=== PATIENT | male | born 1965 | race Hispanic/Latino ===

== ENCOUNTER 2017-05-12 13:27 | Emergency (ER) | payer MEDICAID ==
[2017-05-12 13:31] VITALS: BMI 22.5
[2017-05-12 13:35] VITALS: RESP 18; O2SAT 97
--- NOTE | 2017-05-12 15:58 | C.PDOC ---
History Of Present Illness 51 y/o male presents to the ED with complaints of dizziness for the past few weeks. PT states symptoms onset after diarrheal illness lasting 1 day. Questionable homosexual activity. Denies fever, chills, chest pain, weakness/ numbness, headache, vomiting or any other complaints. Time Seen by Provider: 05/12/17 15:27 Chief Complaint (Nursing): Dizziness/Lightheaded History Per: Patient History/Exam Limitations: no limitations Onset/Duration Of Symptoms: Days Current Symptoms Are (Timing): Still Present Fall Associated With With Symptoms: No Severity: Mild Recent travel outside of the [place]: No Past Medical History Reviewed: Historical Data, Nursing Documentation, Vital Signs Vital Signs: Last Vital Signs Temp 98 F 05/12/17 13:31 Pulse 74 05/12/17 13:31 Resp 18 05/12/17 13:31 BP 102/69 05/12/17 13:31 Pulse Ox 97 05/12/17 18:12 - Medical History PMH: Arthritis, Back Problems (sciatica) Surgical History: Appendectomy, Tonsillectomy - [facility] Procedures ENDOSC POLYPECTOMY OF LG INTEST (06/08/15) Family History: States: Unknown Family Hx - Social History Hx Tobacco Use: Yes Hx Alcohol Use: No Hx Substance Use: No - Immunization History Hx Tetanus Toxoid Vaccination: Yes (less than 5 yrs ago) Hx Influenza Vaccination: Yes Hx Pneumococcal Vaccination: Yes Review Of Systems Except As Marked, All Systems Reviewed And Found Negative. Constitutional: Negative for: Fever, Chills Cardiovascular: Negative for: Chest Pain Respiratory: Negative for: Shortness of Breath Gastrointestinal: Negative for: Vomiting Neurological: Positive for: Dizziness. Negative for: Weakness, Numbness, Headache Physical Exam - Physical Exam Appears: Non-toxic, No Acute Distress Skin: Warm, Dry, No Rash Head: Atraumatic, Normacephalic Eye(s): bilateral: Normal Inspection, PERRL, EOMI Neck: Normal, Normal ROM, Supple Chest: Symmetrical Cardiovascular: Rhythm Regular, No Murmur Respiratory: Normal Breath Sounds, No Rales, No Rhonchi, No Wheezing Extremity: Normal ROM Extremity: Bilateral: Atraumatic Neurological/Psych: Oriented x3, Normal Speech, Normal Cognition, Normal Cranial Nerves ED Course And Treatment - Laboratory Results Result Diagrams: 05/12/17 16:54 05/12/17 16:54 Lab Interpretation: Normal (UA neg, tox + THC only.) O2 Sat by Pulse Oximetry: 97 (room air) Pulse Ox Interpretation: Normal - Radiology CXR: Interpreted by Me CXR Interpretation: Yes: No Acute Disease Progress Note: LOW susp of HIV with HIV NEG serology Reevaluation Time: 19:28 Reassessment Condition: Improved Medical Decision Making Medical Decision Making: anxiety, mild diarrhea, normal labs, HIV neg. Disposition Doctor Will See Patient In The: Office Counseled Patient/Family Regarding: Studies Performed, Diagnosis - Disposition Disposition: HOME/ ROUTINE Disposition Time: 19:29 Condition: GOOD - Clinical Impression Clinical Impression: Malaise and fatigue - Scribe Statement The provider has reviewed the documentation as recorded by the Marycruz Martinez Provider Attestation: All medical record entries made by the Marycruz were at my direction and personally dictated by me. I have reviewed the chart and agree that the record accurately reflects my personal performance of the history, physical exam, medical decision making, and the department course for this patient. I have also personally directed, reviewed, and agree with the discharge instructions and disposition.
[2017-05-12] MEDS ORDERED: Sodium Chloride 0.9% 1,000 ML IV ONE (16:01)
[2017-05-12] MEDS ORDERED: Sodium Chloride 0.9% 1,000 ML ONE (16:30)
--- NOTE | 2017-05-12 16:30 | RAD ---
PROCEDURE: CHEST RADIOGRAPH, 1 VIEW HISTORY: Shortness of breath COMPARISON: None available. FINDINGS: LUNGS: The lungs are well inflated and clear. PLEURA: No pneumothorax or pleural fluid seen. CARDIOVASCULAR: Normal. OSSEOUS STRUCTURES: No significant abnormalities. VISUALIZED UPPER ABDOMEN: Normal. OTHER FINDINGS: None. IMPRESSION: No active pulmonary disease.
[2017-05-12 17:01] LABS: BASO # 0.1 K/uL (0.0-0.2); BASO % 1.1 % (0.0-2.0); EOS # 0.1 K/uL (0.0-0.7); EOS % 1.4 % (0.0-4.0); HEMOGLOBIN 15.7 g/dL (12.0-18.0); LYMPH # 1.5 K/uL (1.0-4.3); LYMPH % 22.1 % (20.0-40.0); MEAN CELL VOLUME 91.2 fL (80.0-94.0); MEAN CORPUSCULAR HEMOGLOBIN 31.6 pg (27.0-31.0); MEAN CORPUSCULAR HGB CONC 34.7 g/dL (33.0-37.0); MEAN PLATELET VOLUME 9.7 fL (7.2-11.7); MONO # 0.4 K/uL (0.0-0.8); MONO % 6.3 % (0.0-10.0); NEUT # 4.7 K/uL (1.8-7.0); NEUT % 69.1 % (50.0-75.0); RBC 4.98 Mil/uL (4.40-5.90); WHITE BLOOD COUNT 6.8 K/uL (4.8-10.8)
--- NOTE | 2017-05-12 17:10 | CT ---
PROCEDURE: CT HEAD WITHOUT CONTRAST. HISTORY: dizzy x 2 weeks, ?HIV, ? AIDS COMPARISON: Images from noncontrast head CT performed 07/10/15 TECHNIQUE: Axial computed tomography images were obtained through the head/brain without intravenous contrast. Radiation dose: Total exam DLP = 981.84 mGy-cm. This CT exam was performed using one or more of the following dose reduction techniques: Automated exposure control, adjustment of the mA and/or kV according to patient size, and/or use of iterative reconstruction technique. FINDINGS: HEMORRHAGE: No intracranial hemorrhage. BRAIN: No mass effect or edema. The adams-white matter differentiation appears intact. Please note that MRI with diffusion imaging is more sensitive in the detection of acute ischemic event. VENTRICLES: No hydrocephalus. CALVARIUM: Unremarkable. PARANASAL SINUSES: Unremarkable as visualized. No significant inflammatory changes. MASTOID AIR CELLS: Unremarkable as visualized. No inflammatory changes. OTHER FINDINGS: None. IMPRESSION: No acute intracranial pathology identified.
[2017-05-12 17:11] LABS: ALBUMIN 4.2 g/dL (3.5-5.0)
[2017-05-12 17:13] LABS: GFR AFRICAN-AMERICAN > 60; GFR NON-AFRICAN AMERICAN > 60
[2017-05-12 17:14] LABS: ALB/GLOB RATIO 1.6 (1.0-2.1); ALT/SGPT 26 U/L (21-72); AST/SGOT 22 U/L (17-59); BLOOD UREA NITROGEN 15 mg/dL (9-20)
[2017-05-12 17:24] LABS: B-TYPE NATRIURETIC PEPTIDE 46.5 pg/mL (0-900)
[2017-05-12 17:24] LABS: SQUAMOUS EPITHIAL < 1 /hpf (0-5); URINE BILIRUBIN NEGATIVE (NEGATIVE); URINE BLOOD NEGATIVE (NEGATIVE); URINE CLARITY Clear (Clear); URINE COLOR Yellow (YELLOW); URINE GLUCOSE (UA) NORMAL (Normal); URINE LEUKOCYTE ESTERASE NEG Leu/uL (Negative); URINE NITRATE NEGATIVE (NEGATIVE); URINE PROTEIN NEGATIVE (NEGATIVE); URINE UROBILINOGEN NORMAL mg/dL (0.2-1.0)
[2017-05-12 17:39] LABS: BARBITURATES, UR NEGATIVE (NEGATIVE)
[2017-05-12 17:40] LABS: BENZODIAZEPINES, UR NEGATIVE (NEGATIVE)
[2017-05-12 17:43] LABS: OPIATES, UR NEGATIVE (NEGATIVE); PHENCYCLIDINE, UR NEGATIVE (NEGATIVE)
[2017-05-12 19:48] VITALS: BP 111/70; PULSE 50; TEMP 97.8
== END 2017-05-12 19:46 | disposition home or self-care (01) ==
LOC: C.ER 13:27
DX: R53.83 Other fatigue (principal)
CPT/HCPCS: 70450; 71010; 80053; 80324; 80345; 80346; 80349; 80353; 80358; 80361; 81001; 83880; 83992; 84484; 85025; 86703; 96361; 96374; 96375; 99285; J1885; J7040

== ENCOUNTER 2017-05-30 11:39 | Emergency (ER) | payer MEDICAID ==
[2017-05-30 11:39] VITALS: BMI 22.5
[2017-05-30 11:44] VITALS: O2SAT 99
[2017-05-30] MEDS ORDERED: Sodium Chloride 0.9% 2,500 ML IV ONE (12:41)
[2017-05-30] MEDS ORDERED: Sodium Chloride 0.9% 1,000 ML ONE ×2 (12:47→14:29)
--- NOTE | 2017-05-30 13:06 | C.PDOC ---
History Of Present Illness 51 year old male presents to the emergency department with complaints of recurrent dizziness for four days. Patient states he was working in a hot basement and sweating profusely. He notes having similar complaints on 2016, had a head CT performed that was negative, and was diagnosed with dehydration. Patient was given fluids and discharged home and has been remaining hydrated with "approximately two liters of water a day." Symptoms currently are less severe then on 05/12/17. Patient denies chest pain, shortness of breath, nausea, or vomiting. Time Seen by Provider: 05/30/17 12:14 Chief Complaint (Nursing): Dizziness/Lightheaded History Per: Patient History/Exam Limitations: no limitations Onset/Duration Of Symptoms: Days (4 days ) Current Symptoms Are (Timing): Still Present Activity At Onset Of Symptoms: Other (working in a hot basement ) Seizure Or Post-ictal Symptoms: None Fall Associated With With Symptoms: No Recent travel outside of the [place]: No Additional History Per: Prior Records Past Medical History Reviewed: Historical Data, Nursing Documentation, Vital Signs Vital Signs: Last Vital Signs Temp 97.7 F 05/30/17 16:53 Pulse 50 L 05/30/17 16:53 Resp 18 05/30/17 16:53 BP 110/70 05/30/17 16:53 Pulse Ox 99 05/30/17 16:53 - Medical History PMH: Arthritis, Back Problems (sciatica) Surgical History: Appendectomy, Tonsillectomy - [facility] Procedures ENDOSC POLYPECTOMY OF LG INTEST (06/08/15) Family History: States: Unknown Family Hx - Social History Hx Tobacco Use: Yes Hx Alcohol Use: No Hx Substance Use: No - Immunization History Hx Tetanus Toxoid Vaccination: Yes (less than 5 yrs ago) Hx Influenza Vaccination: Yes Hx Pneumococcal Vaccination: Yes Review Of Systems Constitutional: Negative for: Fever, Chills Cardiovascular: Negative for: Chest Pain, Palpitations Respiratory: Negative for: Cough, Shortness of Breath Gastrointestinal: Negative for: Nausea, Vomiting, Abdominal Pain Neurological: Positive for: Dizziness (reccurent ) Physical Exam - Physical Exam Appears: Non-toxic, No Acute Distress Skin: Warm, Dry Head: Atraumatic Eye(s): bilateral: Normal Inspection, PERRL, EOMI Oral Mucosa: Moist Neck: Supple Chest: Symmetrical, No Deformity Cardiovascular: Other (sinus bradycardia 51 bpm ) Respiratory: Normal Breath Sounds, No Rhonchi, No Wheezing Gastrointestinal/Abdominal: Soft, No Tenderness, No Distention, No Guarding, No Rebound Neurological/Psych: Oriented x3, Normal Speech, Normal Cognition, Normal Cranial Nerves, Normal Motor, Normal Sensation, Normal Reflexes Gait: Steady ED Course And Treatment - Laboratory Results Result Diagrams: 05/30/17 13:27 05/30/17 13:27 ECG: Interpreted By Me, Viewed By Me ECG Rhythm: Sinus Bradycardia (51 bpm ) Interpretation Of ECG: No prior EKG for evaluation. O2 Sat by Pulse Oximetry: 99 (room air ) Progress Note: Head CT on 05-12-2017 was negative. Blood work and EKG were ordered. Patient was given fluids. Reevaluation Time: 17:07 Reassessment Condition: Improved (ASYMPT) Disposition Counseled Patient/Family Regarding: Studies Performed, Diagnosis, Need For Followup - Disposition Referrals: YOUR,PMD [Other] Disposition: HOME/ ROUTINE Disposition Time: 17:07 Condition: IMPROVED Instructions: Dehydration (ED), Dizziness (ED) Forms: [employer] (Australian) - Clinical Impression Clinical Impression: Dehydration, Dizziness - Scribe Statement The provider has reviewed the documentation as recorded by the Scribe Norma Esqueda All medical record entries made by the Scribe were at my direction and personally dictated by me. I have reviewed the chart and agree that the record accurately reflects my personal performance of the history, physical exam, medical decision making, and the department course for this patient. I have also personally directed, reviewed, and agree with the discharge instructions and disposition.
[2017-05-30 13:36] LABS: BASO # 0.1 K/uL (0.0-0.2); BASO % 1.4 % (0.0-2.0); EOS # 0.3 K/uL (0.0-0.7); EOS % 4.2 % (0.0-4.0); HEMATOCRIT 42.5 % (35.0-51.0); LYMPH # 1.5 K/uL (1.0-4.3); LYMPH % 24.5 % (20.0-40.0); MEAN CELL VOLUME 92.2 fL (80.0-94.0); MEAN CORPUSCULAR HEMOGLOBIN 31.1 pg (27.0-31.0); MEAN CORPUSCULAR HGB CONC 33.7 g/dL (33.0-37.0); MEAN PLATELET VOLUME 9.5 fL (7.2-11.7); MONO # 0.4 K/uL (0.0-0.8); RED CELL DISTRIBUTION WIDTH 13.4 % (11.5-14.5); WHITE BLOOD COUNT 6.1 K/uL (4.8-10.8)
[2017-05-30 13:49] LABS: BLOOD UREA NITROGEN 18 mg/dL (9-20); CALCIUM 8.9 mg/dl (8.6-10.4); CARBON DIOXIDE 25 mmol/L (22-30); CHLORIDE 107 mmol/L (98-107); GFR AFRICAN-AMERICAN > 60; GLUCOSE,RANDOM 94 mg/dL (75-110); POTASSIUM 4.1 mmol/L (3.6-5.2); SODIUM 142 mmol/L (132-148)
[2017-05-30 16:55] VITALS: BP 110/70; PULSE 50; RESP 18; TEMP 97.7
--- NOTE | 2017-06-02 21:01 | CARD ---
APPROVED REPORT EKG Measurement Heart [id number] <Conclusion> Sinus bradycardia Otherwise normal ECG
== END 2017-05-30 17:13 | disposition home or self-care (01) ==
LOC: C.ER 11:39
DX: E86.0 Dehydration (principal); R42 Dizziness and giddiness
CPT/HCPCS: 80048; 84484; 85025; 85378; 96360; 99285; J7040

== ENCOUNTER 2017-06-03 01:23 | Emergency (ER) | payer MEDICAID ==
[2017-06-03 01:23] VITALS: BMI 22.5
[2017-06-03 01:35] VITALS: TEMP 98.1; O2SAT 99
--- NOTE | 2017-06-03 03:35 | C.PDOC ---
History Of Present Illness 51 year old male who presents to the ER after he ate twinkies and a lot of chocolate today. Patient states at approximately 22:00 he developed nausea and had 2-3 episodes of vomiting. Patient states after vomiting he felt better and currently feels better. Denies abdominal pain, diarrhea, fever, or chills. Time Seen by Provider: 06/03/17 02:06 Chief Complaint (Nursing): GI Problem History Per: Patient History/Exam Limitations: no limitations Onset/Duration Of Symptoms: Hrs Current Symptoms Are (Timing): Gone Pain Scale Rating Of: 1 Radiation Of Pain To:: None Quality Of Discomfort: Unable To Describe Associated Symptoms: Nausea, Vomiting. denies: Fever, Chills, Diarrhea Exacerbating Factors: None Alleviating Factors: None Recent travel outside of the [place]: No Past Medical History Reviewed: Historical Data, Nursing Documentation, Vital Signs Vital Signs: Last Vital Signs Temp 98.1 F 06/03/17 03:43 Pulse 60 06/03/17 03:43 Resp 16 06/03/17 03:43 BP 101/60 06/03/17 03:43 Pulse Ox 99 06/03/17 03:44 - Medical History PMH: Arthritis, Back Problems (sciatica) Surgical History: Appendectomy, Tonsillectomy - [facility] Procedures ENDOSC POLYPECTOMY OF LG INTEST (06/08/15) Family History: States: No Known Family Hx - Social History Hx Tobacco Use: Yes Hx Alcohol Use: No Hx Substance Use: No - Immunization History Hx Tetanus Toxoid Vaccination: Yes (less than 5 yrs ago) Hx Influenza Vaccination: Yes Hx Pneumococcal Vaccination: Yes Review Of Systems Except As Marked, All Systems Reviewed And Found Negative. Constitutional: Negative for: Fever, Chills Gastrointestinal: Positive for: Nausea, Vomiting. Negative for: Abdominal Pain , Diarrhea Physical Exam - Physical Exam Appears: Non-toxic, No Acute Distress Skin: Normal Color, Warm, Dry, No Rash Head: Atraumatic, Normacephalic Eye(s): bilateral: Normal Inspection Oral Mucosa: Moist Throat: No Erythema Neck: Normal ROM, Supple Chest: Symmetrical, No Tenderness Cardiovascular: Rhythm Regular, No Murmur Respiratory: Normal Breath Sounds, No Rales, No Rhonchi, No Wheezing Gastrointestinal/Abdominal: Soft, No Tenderness Back: Normal Inspection, No CVA Tenderness Neurological/Psych: Oriented x3, Normal Speech, Normal Cognition, Normal Motor, Normal Sensation Gait: Steady ED Course And Treatment O2 Sat by Pulse Oximetry: 99 (Room air) Pulse Ox Interpretation: Normal Medical Decision Making Medical Decision Making: Plan: * Zofran * PO Challenge Patient is currently asymptomatic. PO challenge given and tolerated with success , will discharge home. Disposition - Disposition Referrals: Ryley Naranjo MD [Primary Care Provider] - Disposition: HOME/ ROUTINE Disposition Time: 03:32 Condition: GOOD Additional Instructions: Follow up with the medical doctor within 1-2 days. Return if worsened. Prescriptions: Famotidine [Pepcid] 20 mg PO BID #20 tab Instructions: Acute Nausea and Vomiting (ED) Forms: [employer] (Jordanian) - Clinical Impression Clinical Impression: Nausea, Vomiting - Scribe Statement The provider has reviewed the documentation as recorded by the Scribe Rafat Fleming All medical record entries made by the Scribe were at my direction and personally dictated by me. I have reviewed the chart and agree that the record accurately reflects my personal performance of the history, physical exam, medical decision making, and the department course for this patient. I have also personally directed, reviewed, and agree with the discharge instructions and disposition.
[2017-06-03 03:46] VITALS: BP 101/60; PULSE 60; RESP 16
== END 2017-06-03 04:00 | disposition home or self-care (01) ==
LOC: SUPCPDRO 01:23 → C.ER 01:23
DX: R11.2 Nausea with vomiting, unspecified (principal)

== ENCOUNTER 2017-06-09 14:33 | Emergency (ER) | payer MEDICAID ==
[2017-06-09 14:33] VITALS: BMI 22.5
[2017-06-09 14:53] VITALS: BP 116/74; PULSE 89; RESP 16; TEMP 97.7; O2SAT 97
--- NOTE | 2017-06-09 16:26 | C.PDOC ---
History Of Present Illness 51 yr old male presents to the ER with complaints of intermittent dizziness, associated with nausea for the past few weeks. Patient states he has been seen before in the ER for similar episode but was not given any medicine. Patient states he has tried to follow up with and is unable to follow up for the next 6 weeks. Patient denies fever, vision changes, chest pain, SOB, vomiting, weakness or numbness. Time Seen by Provider: 06/09/17 15:57 Chief Complaint (Nursing): Dizziness/Lightheaded History Per: Patient History/Exam Limitations: no limitations Onset/Duration Of Symptoms: Intermittent Episodes (Past few weeks) Past Medical History Reviewed: Historical Data, Nursing Documentation, Vital Signs Vital Signs: Last Vital Signs Temp 97.7 F 06/09/17 14:51 Pulse 89 06/09/17 14:51 Resp 16 06/09/17 14:51 BP 116/74 06/09/17 14:51 Pulse Ox 97 06/09/17 16:43 - Medical History PMH: Arthritis, Back Problems (sciatica) Surgical History: Appendectomy, Tonsillectomy - [facility] Procedures ENDOSC POLYPECTOMY OF LG INTEST (06/08/15) Family History: States: No Known Family Hx - Social History Hx Tobacco Use: Yes Hx Alcohol Use: No Hx Substance Use: No - Immunization History Hx Tetanus Toxoid Vaccination: Yes (less than 5 yrs ago) Hx Influenza Vaccination: Yes Hx Pneumococcal Vaccination: Yes Review Of Systems Except As Marked, All Systems Reviewed And Found Negative. Constitutional: Negative for: Fever Eyes: Negative for: Vision Change Cardiovascular: Negative for: Chest Pain Respiratory: Negative for: Shortness of Breath Gastrointestinal: Positive for: Nausea. Negative for: Vomiting Neurological: Positive for: Dizziness. Negative for: Weakness, Numbness Physical Exam - Physical Exam Appears: Non-toxic, No Acute Distress Skin: Warm, Dry, No Rash Head: Atraumatic, Normacephalic Eye(s): bilateral: Normal Inspection, PERRL, EOMI, Other (No nystagmus.) Ear(s): Bilateral: Normal Nose: Normal, No Flaring Oral Mucosa: Moist Neck: Normal, Normal ROM, Supple Chest: Symmetrical, No Tenderness Cardiovascular: Rhythm Regular, No Murmur Respiratory: Normal Breath Sounds, No Rales, No Rhonchi, No Wheezing Extremity: Normal ROM, No Tenderness, No Deformity, No Swelling Neurological/Psych: Oriented x3, Normal Speech, Normal Cranial Nerves, No Cerebellar Signs, Normal Motor, Normal Sensation Gait: Steady ED Course And Treatment O2 Sat by Pulse Oximetry: 97 (RA ) Pulse Ox Interpretation: Normal Medical Decision Making Medical Decision Making: Impression: Dizziness Prior records reviewed: patient has been seen multiple times for similar symptoms 05/12, 05/30 and most recent 06/03/17. Patient has had labs, CT head performed without any acute findings. UDS +cannabis. Plan: * Meclizine PO Progress: Patient just wanted rx. Rx was given. Advised patient to rest and drink fluids. Take Antivert as needed for symptoms and to follow up outpatient. Disposition Counseled Patient/Family Regarding: Diagnosis, Need For Followup, Rx Given - Disposition Referrals: Favio Lamas MD [Staff Provider] - Disposition: HOME/ ROUTINE Disposition Time: 16:41 Condition: STABLE Additional Instructions: Your prescriptions have been sent to the pharmacy Take Meclizine for dizziness 1-2 pills every 6-8 hours as needed Take Zofran as needed every 6-8 hours for nausea and vomiting Please follow up with neurology or your primary doctor for further evaluation Prescriptions: Meclizine [Meclizine*] 25 mg PO Q6 PRN #30 tab PRN Reason: Dizziness Ondansetron ODT [Zofran ODT] 1 odt PO BID PRN #6 odt PRN Reason: Nausea/Vomiting Instructions: Dizziness (ED) Forms: [facility] (Armenian) - POA Present On Arrival: None - Clinical Impression Clinical Impression: Dizziness - 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 - Scribe Statement The provider has reviewed the documentation as recorded by the Scribe Haily Naqvi All medical record entries made by the Samuelibrosario were at my direction and personally dictated by me. I have reviewed the chart and agree that the record accurately reflects my personal performance of the history, physical exam, medical decision making, and the department course for this patient. I have also personally directed, reviewed, and agree with the discharge instructions and disposition.
== END 2017-06-09 16:54 | disposition home or self-care (01) ==
LOC: C.ER 14:33
DX: R42 Dizziness and giddiness (principal)

== ENCOUNTER 2018-03-24 13:37 | Emergency (ER) | payer MEDICAID ==
[2018-03-24 13:37] VITALS: BMI 22.5
--- NOTE | 2018-03-24 14:58 | C.PDOC ---
History Of Present Illness 52 years old male with PSH of appendectomy presents to ED for complaints of rectal pain associated with difficulty and pain during BM that began 4 days ago. Patient states pain has worsened. Patient states sensation of "swelling and pain." Denies fever, discharge, puss or any other physical complaints. Patient states he quit smoking 1 year ago. Time Seen by Provider: 03/24/18 14:49 Chief Complaint (Nursing): GI Problem History Per: Patient History/Exam Limitations: no limitations Onset/Duration Of Symptoms: Hrs Current Symptoms Are (Timing): Still Present Recent travel outside of the [place]: No Past Medical History Reviewed: Historical Data, Nursing Documentation, Vital Signs Vital Signs: Last Vital Signs Temp 98.7 F 03/24/18 13:57 Pulse 101 H 03/24/18 13:57 Resp 20 03/24/18 13:57 BP 122/83 03/24/18 13:57 Pulse Ox 96 03/24/18 15:10 - Medical History PMH: Arthritis, Back Problems (sciatica) Surgical History: Appendectomy, Tonsillectomy - [facility] Procedures ENDOSC POLYPECTOMY OF LG INTEST (06/08/15) Family History: States: Unknown Family Hx - Social History Hx Tobacco Use: Yes Hx Alcohol Use: No Hx Substance Use: No - Immunization History Hx Tetanus Toxoid Vaccination: Yes (less than 5 yrs ago) Hx Influenza Vaccination: Yes Hx Pneumococcal Vaccination: Yes Review Of Systems Constitutional: Negative for: Fever, Chills Gastrointestinal: Positive for: Rectal Pain (Swelling and pain ). Negative for : Nausea, Vomiting, Diarrhea, Other (Discharge or puss ) Skin: Negative for: Rash Neurological: Negative for: Weakness, Numbness Physical Exam - Physical Exam Appears: Non-toxic, No Acute Distress Skin: Normal Color, Warm, Dry Head: Atraumatic, Normacephalic Eye(s): bilateral: Normal Inspection, PERRL, EOMI Oral Mucosa: Moist Chest: Symmetrical, No Tenderness Cardiovascular: Rhythm Regular, No Murmur Respiratory: Normal Breath Sounds, No Decreased Breath Sounds, No Rales, No Rhonchi, No Wheezing Gastrointestinal/Abdominal: Soft, No Tenderness, No Distention, No Guarding, No Rebound Rectal: Hemorrhoids (External on position 5 and 6 o'clock ), Tenderness, Other ( No blood, discharge, thrombus, or abscess ) Extremity: Normal ROM Extremity: Bilateral: Atraumatic, Normal Color And Temperature, Normal ROM Neurological/Psych: Oriented x3, Normal Speech, Normal Cognition Gait: Steady ED Course And Treatment O2 Sat by Pulse Oximetry: 96 (RA) Pulse Ox Interpretation: Normal Medical Decision Making Medical Decision Making: Patient will be sent home on medication and he is advised to make an appointment to see surgeon. Disposition - Disposition Referrals: [facility] at [facility] [Outside] Disposition: HOME/ ROUTINE Disposition Time: 15:11 Condition: GOOD Additional Instructions: Follow up with general surgery service in a few days. Prescriptions: Hydrocortisone 2.5% (Rectal) [Anusol-HC] 30 applic RI BID 10 Days #1 tube Ibuprofen [Motrin Ib] 600 mg PO Q6 5 Days #20 tablet Instructions: Hemorrhoids Forms: [employer] (Honduran) - Clinical Impression Clinical Impression: External hemorrhoid - Scribe Statement The provider has reviewed the documentation as recorded by the Scribrosario Blake All medical record entries made by the Scribe were at my direction and personally dictated by me. I have reviewed the chart and agree that the record accurately reflects my personal performance of the history, physical exam, medical decision making, and the department course for this patient. I have also personally directed, reviewed, and agree with the discharge instructions and disposition.
[2018-03-24 15:56] VITALS: BP 112/77; PULSE 18; RESP 18; TEMP 98.6; O2SAT 99
== END 2018-03-24 15:40 | disposition home or self-care (01) ==
LOC: C.ER 13:37
DX: K64.4 Residual hemorrhoidal skin tags (principal); Z87.891 Personal history of nicotine dependence

== ENCOUNTER 2018-03-26 10:54 | Inpatient (IN) | payer MEDICAID ==
[2018-03-26 10:55] VITALS: BMI 22.5
[2018-03-26] MEDS ORDERED: Sodium Chloride 0.9% 1,000 ML IV ONE ×3 (11:44→20:15)
--- NOTE | 2018-03-26 12:07 | C.PDOC ---
History Of Present Illness 52 y/o male presents to the ER for evaluation of worsening rectal pain, developing over the past few days. Patient was seen here 2 nights ago, diagnosed with external hemorrhoids, and prescribed hydrocortisone cream. States he has been applying the cream and taking ibuprofen but the pain is worsening. Patient also noted pus and blood draining from the area and became concerned about infection. Otherwise, denies fever, chills, denies known trauma or injury to area, denies sore throat, CP, SOB, abd. pain, vomiting, diarrhea, back pain, UTI sx. Ambulate to Ed for evaluation, appears in pain. Time Seen by Provider: 03/26/18 11:26 Chief Complaint (Nursing): GI Problem History Per: Patient History/Exam Limitations: no limitations Onset/Duration Of Symptoms: Days Current Symptoms Are (Timing): Still Present Past Medical History Reviewed: Historical Data, Nursing Documentation, Vital Signs Vital Signs: Last Vital Signs Temp 98.3 F 03/26/18 11:11 Pulse 102 H 03/26/18 11:11 Resp 20 03/26/18 11:11 BP 103/74 03/26/18 11:11 Pulse Ox 98 03/26/18 15:05 - Medical History PMH: Arthritis, Back Problems (sciatica) Surgical History: Appendectomy, Tonsillectomy - [facility] Procedures ENDOSC POLYPECTOMY OF LG INTEST (06/08/15) Family History: States: Unknown Family Hx - Social History Hx Tobacco Use: Yes Hx Alcohol Use: No Hx Substance Use: No - Immunization History Hx Tetanus Toxoid Vaccination: Yes (less than 5 yrs ago) Hx Influenza Vaccination: Yes Hx Pneumococcal Vaccination: Yes Review Of Systems Constitutional: Negative for: Fever, Chills Gastrointestinal: Positive for: Rectal Pain, Other (Blood and pus per rectum). Negative for: Vomiting, Abdominal Pain, Diarrhea Physical Exam - Physical Exam Appears: Well, Non-toxic, In Acute Distress (mild painful distress), Other ( Uncomfortable) Skin: Warm, Dry Head: Normacephalic Eye(s): bilateral: PERRL Nose: No Flaring, No Discharge Oral Mucosa: Moist, No Drooling Tongue: Normal Appearing Lips: Normal Appearing Throat: No Erythema Neck: Trachea Midline, No Midline Cervical Tenderness, No Paracervical Tenderness, Supple Chest: Symmetrical, No Deformity Cardiovascular: Rhythm Regular, No Murmur Respiratory: No Accessory Muscle Use, No Rales, No Rhonchi, No Stridor, No Wheezing Gastrointestinal/Abdominal: Soft, No Tenderness, No Distention, No Guarding, No Rebound Rectal: Rectal Tone (normal), No Hemorrhoids, Tenderness (tender mass over the right rectal area, 3cm diameter, (-) flactulance.), Other (diffuse right-sided gluteal erythema) Back: No CVA Tenderness, No Vertebral Tenderness Extremity: Normal ROM, No Tenderness, Capillary Refill (less than 2sec), No Deformity, No Swelling Neurological/Psych: Oriented x3, Normal Speech, Normal Cranial Nerves, Normal Motor, Normal Sensation, Normal Reflexes Gait: Steady Additional Physical Exam Comments: Examination chaperoned by ED Marycruz Valero ED Course And Treatment - Laboratory Results Result Diagrams: 03/26/18 12:32 03/26/18 12:32 Lab Interpretation: No Acute Changes O2 Sat by Pulse Oximetry: 98 (RA) Pulse Ox Interpretation: Normal - CT Scan/US CT A/P Other Rad Studies (CT/US): Read By Radiologist, Radiology Report Reviewed CT/US Interpretation: Accession No. : [id number]. Patient Name / ID : COBY CUMMINGS / [id number]. Exam Date : 03/26/2018 13:31:25 ( Approved ). Study Comment : Sex / Age : M / 52Y. Creator : Michelle Nava. Dictator : Ronny Myers MD. Sales Force Administrator : Post Closer : Ronny Myers MD. Approver2 : Report Date : 03/26/2018 13:39:46. My Comment : . PROCEDURE: CT Abdomen and Pelvis with intravenous contrast. HISTORY: Right perirectal pain, redness r/o abscess. COMPARISON: None. TECHNIQUE: Multiple contiguous axial images were performed through the abdomen and pelvis with the use of intravenous contrast. Subsequently, sagittal and coronal reformatted images were obtained. Radiation dose: Total exam DLP = 753 mGy-cm. This CT exam was performed using one or more of the following dose reduction techniques: Automated exposure control, adjustment of the mA and/or kV according to patient size, and/or use of iterative reconstruction technique. FINDINGS: LOWER THORAX : Mild atelectasis and/or nodular thickening in the medial right middle lobe. Mild bibasilar atelectasis. Mild lingular atelectasis. LIVER: Mild fatty infiltration of the liver. GALLBLADDER AND BILE DUCTS: Unremarkable. PANCREAS : Unremarkable. No gross lesion or ductal dilatation. SPLEEN: Unremarkable. ADRENALS: Unremarkable. No mass. KIDNEYS AND URETERS: Unremarkable. No hydronephrosis. No solid mass. VASCULATURE: Unremarkable. No aortic aneurysm. BOWEL: Unremarkable. No obstruction. No gross mural thickening. Diverticulosis. APPENDIX: Not well identified. PERITONEUM: Unremarkable. No free fluid. No free air. LYMPH NODES: Unremarkable. No enlarged lymph nodes. BLADDER: Unremarkable. REPRODUCTIVE: Heterogeneous prominent prostate. BONES : Degenerative changes in the spine. Mixed lytic sclerotic foci in the right iliac bone, nonspecific. Correlation with bone scan may be helpful if clinically indicated. Small bone island in the right proximal femur. OTHER FINDINGS: Within the right perirectal region, there is a large focal collection measuring 5.5 x 3.0 centimeters best seen on series 3 image 208 demonstrating a Hounsfield unit attenuation of 46. This is of uncertain clinical etiology and may represent a perirectal abscess. Additional etiologies such as soft tissue lesion cannot entirely be excluded. Reticulation in the adjacent soft tissues with overlying skin thickening. Mild nonspecific soft tissue stranding in the region of the right inguinal canal, nonspecific best seen on series 3, images 163-171. Clinical correlation. Shotty inguinal lymph nodes noted. IMPRESSION: Within the right perirectal region, there is a large focal collection measuring 5.5 x 3.0 centimeters best seen on series 3 image 208 demonstrating a Hounsfield unit attenuation of 46. This is of uncertain clinical etiology and may represent a perirectal abscess. Additional etiologies such as soft tissue lesion cannot entirely be excluded. Additional etiologies not excluded. Reticulation in the adjacent soft tissues with overlying skin thickening. Additional findings as above. Progress Note: Routine blood work and cultures ordered. Urine sent. Exam findings and clinical presentation are significant for likely rectal abscess. Patient started on IV fluids and 4 mg IV Morphine. Ordered CT A/P with IV contrast. On re-eval, pt remained stable. Afebrile, hemodynamicaly stable. Abd: benign. Rectal exam: (+) Right perirectal abscess. Blood work review and appears normal. Imaging review (+) confirm perirectal abscess. Case discussed with and admission arranged. global consumer sector vice president notified about admission. Disposition - Disposition Disposition: HOSPITALIZED Disposition Time: 13:35 Condition: STABLE - Clinical Impression Clinical Impression: Cherelle-rectal abscess - PA / MULTILITH OPERATOR / Resident Statement MD/DO has reviewed & agrees with the documentation as recorded. - Scribe Statement The provider has reviewed the documentation as recorded by the Scribe (Triny Valero) All medical record entries made by the Scribe were at my direction and personally dictated by me. I have reviewed the chart and agree that the record accurately reflects my personal performance of the history, physical exam, medical decision making, and the department course for this patient. I have also personally directed, reviewed, and agree with the discharge instructions and disposition.
[2018-03-26] MEDS ORDERED: Morphine 4 MG/ML VIAL ONE (12:31)
[2018-03-26 12:35] LABS: BASO # 0.1 K/uL (0.0-0.2); BASO % 1.1 % (0.0-2.0); EOS # 0.1 K/uL (0.0-0.7); EOS % 0.8 % (0.0-4.0); HEMOGLOBIN 14.9 g/dL (12.0-18.0); LYMPH # 1.7 K/uL (1.0-4.3); LYMPH % 14.4 % (20.0-40.0); MEAN CORPUSCULAR HEMOGLOBIN 30.9 pg (27.0-31.0); MEAN CORPUSCULAR HGB CONC 34.7 g/dL (33.0-37.0); MEAN PLATELET VOLUME 9.8 fL (7.2-11.7); MONO # 1.3 K/uL (0.0-0.8); MONO % 11.1 % (0.0-10.0); NEUT # 8.7 K/uL (1.8-7.0); NEUT % 72.6 % (50.0-75.0); RBC 4.81 Mil/uL (4.40-5.90); RED CELL DISTRIBUTION WIDTH 13.2 % (11.5-14.5)
[2018-03-26 12:36] LABS: WHITE BLOOD COUNT 11.9 K/uL (4.8-10.8)
[2018-03-26 12:53] LABS: ALB/GLOB RATIO 1.3 (1.0-2.1); ALBUMIN 4.2 g/dL (3.5-5.0); ALT/SGPT 15 U/L (21-72); AST/SGOT 21 U/L (17-59); BLOOD UREA NITROGEN 16 mg/dL (9-20); GFR AFRICAN-AMERICAN > 60; GFR NON-AFRICAN AMERICAN > 60
[2018-03-26] MEDS ORDERED: Iodixanol 320 MG/ML 100 ML BOTTLE IV ONE (13:14)
[2018-03-26 13:55] LABS: SQUAMOUS EPITHIAL < 1 /hpf (0-5); URINE BACTERIA RARE (<OCC); URINE BILIRUBIN NEGATIVE (NEGATIVE); URINE BLOOD NEGATIVE (NEGATIVE); URINE CLARITY Clear (Clear); URINE COLOR Yellow (YELLOW); URINE GLUCOSE (UA) NORMAL (Normal); URINE LEUKOCYTE ESTERASE NEG Leu/uL (Negative); URINE PROTEIN NEGATIVE (NEGATIVE); URINE UROBILINOGEN NORMAL mg/dL (0.2-1.0)
--- NOTE | 2018-03-26 14:27 | CT ---
PROCEDURE: CT Abdomen and Pelvis with intravenous contrast HISTORY: Right perirectal pain, redness r/o abscess COMPARISON: None. TECHNIQUE: Multiple contiguous axial images were performed through the abdomen and pelvis with the use of intravenous contrast. Subsequently, sagittal and coronal reformatted images were obtained. Radiation dose: Total exam DLP = 753 mGy-cm. This CT exam was performed using one or more of the following dose reduction techniques: Automated exposure control, adjustment of the mA and/or kV according to patient size, and/or use of iterative reconstruction technique. FINDINGS: LOWER THORAX: Mild atelectasis and/or nodular thickening in the medial right middle lobe. Mild bibasilar atelectasis. Mild lingular atelectasis. LIVER: Mild fatty infiltration of the liver. GALLBLADDER AND BILE DUCTS: Unremarkable. PANCREAS: Unremarkable. No gross lesion or ductal dilatation. SPLEEN: Unremarkable. ADRENALS: Unremarkable. No mass. KIDNEYS AND URETERS: Unremarkable. No hydronephrosis. No solid mass. VASCULATURE: Unremarkable. No aortic aneurysm. BOWEL: Unremarkable. No obstruction. No gross mural thickening. Diverticulosis. APPENDIX: Not well identified. PERITONEUM: Unremarkable. No free fluid. No free air. LYMPH NODES: Unremarkable. No enlarged lymph nodes. BLADDER: Unremarkable. REPRODUCTIVE: Heterogeneous prominent prostate. BONES: Degenerative changes in the spine. Mixed lytic sclerotic foci in the right iliac bone, nonspecific. Correlation with bone scan may be helpful if clinically indicated. Small bone island in the right proximal femur. OTHER FINDINGS: Within the right perirectal region, there is a large focal collection measuring 5.5 x 3.0 centimeters best seen on series 3 image 208 demonstrating a Hounsfield unit attenuation of 46. This is of uncertain clinical etiology and may represent a perirectal abscess. Additional etiologies such as soft tissue lesion cannot entirely be excluded. Reticulation in the adjacent soft tissues with overlying skin thickening. Mild nonspecific soft tissue stranding in the region of the right inguinal canal, nonspecific best seen on series 3, images 163-171. Clinical correlation. Shotty inguinal lymph nodes noted. IMPRESSION: Within the right perirectal region, there is a large focal collection measuring 5.5 x 3.0 centimeters best seen on series 3 image 208 demonstrating a Hounsfield unit attenuation of 46. This is of uncertain clinical etiology and may represent a perirectal abscess. Additional etiologies such as soft tissue lesion cannot entirely be excluded. Additional etiologies not excluded. Reticulation in the adjacent soft tissues with overlying skin thickening. Additional findings as above.
[2018-03-26] MEDS ORDERED: Piperacillin/Tazobact 3.375 gm 100 ML IV STA (14:46)
[2018-03-26] MEDS ORDERED: Piperacillin/Tazobact 3.375 gm 100 ML IVPB ONE (14:53)
[2018-03-26] MEDS ORDERED: Vancomycin 1 GM in Sodium Chloride 0.9% 200 ML IVPB STA (16:02)
--- NOTE | 2018-03-26 16:09 | CP.PCM.HP ---
History of Present Illness - History of Present Illness History of Present Illness: H & P 52 year old male presents to ED with 1 week history of perirectal pain. Patient was previously seen at [facility] ED for same pain at the beginning of the week. He was prescribed hydrocortisone cream and ibuprofen. Patient states he took the entire bottle of ibuprofen over the course of the week and used the cream as prescribed with minimal relief. Patient returns with worsening pain. Patient states he can not sit or lay down without the severe sharp pain. He rates pain as an 8/10 currently. Patient denies bloody discharge, fevers, radiation of pain, or changes in stool. Patient also states he has experienced urinary hesitancy over the past week. He states his stream is weaker than usual and has a hard time initiating urination. Past medical history: b/l knee and hip osteoarthritis, upper extremity neuropathy, chronic headaches, vertigo, hemmorhoids Allergies: NKDA Surgical history: appendectomy and eye surgery in his youth, hernia repair 2000 of unknown type, colonoscopy 3 years ago (came back negative) Hospitalizations: for pneumonia has a child Family history: father of Colon [place] at age 62, brother of colon CA in early 50's Medications: etodolac 400mg, gabapentin 300mg, naproxen 500mg, meclizine 125mg, proctozone Social: tobacco: 20 pack year history- quit 1 year ago alcohol: denies current use- used to drink socially 1/glass per week Recreational drug use: denies PMD: Dr. Sow Present on Admission - Present on Admission Any Indicators Present on Admission: No History of DVT/PE: No History of Uncontrolled Diabetes: No Urinary Catheter: No Decubitus Ulcer Present: No History Surgical Site Infection Following: None Review of Systems - Constitutional Constitutional: absent: Anorexia, Chills, Fever, Weakness - EENT Eyes: absent: Change in Vision Nose/Mouth/Throat: absent: Nasal Congestion, Nasal Discharge, Dry Mouth - Cardiovascular Cardiovascular: absent: Chest Pain, Leg Edema, Lightheadedness, Syncope - Respiratory Respiratory: absent: Cough, Dyspnea - Gastrointestinal Gastrointestinal: absent: Abdominal Pain, Diarrhea, Vomiting Additional comments: Perirectal pain - Integumentary Integumentary: Skin Pain, Swelling. absent: Bleeding Lesions, Skin Ulcer - Neurological Neurological: absent: Syncope, Vertigo - Psychiatric Psychiatric: absent: Anxiety, Depression Past Patient History - Infectious Disease Hx of Infectious Diseases: None (as per HPI) - Past Medical History & Family History Past Medical History?: No Pertinent Family History: as per HPI - Past Social History Smoking Status: Former Smoker Chewing Tobacco Use: No Cigar Use: No Alcohol: Social Drugs: Denies - CARDIAC Hx Cardiac Disorders: Yes - NEUROLOGICAL Hx Vertigo: Yes Other/Comment: Neuropathy - MUSCULOSKELETAL/RHEUMATOLOGICAL Hx Arthritis: Yes - GASTROINTESTINAL Hx Gastrointestinal Disorders: No - PSYCHIATRIC Hx Substance Use: No - SURGICAL HISTORY Hx Appendectomy: Yes Hx Tonsillectomy: Yes - ANESTHESIA Hx Anesthesia: Yes Hx Anesthesia Reactions: No Hx Malignant Hyperthermia: No Meds Allergies/Adverse Reactions: Allergies Allergy/AdvReac Type Severity Reaction Status Date / Time No Known Allergies Allergy Verified 03/24/18 14:00 Physical Exam - Constitutional Appears: No Acute Distress - Head Exam Head Exam: ATRAUMATIC, NORMAL INSPECTION, NORMOCEPHALIC - Eye Exam Eye Exam: EOMI, Normal appearance, PERRL Pupil Exam: NORMAL ACCOMODATION, PERRL - ENT Exam ENT Exam: Mucous Membranes Moist, Normal Exam - Neck Exam Neck exam: Positive for: Normal Inspection - Respiratory Exam Respiratory Exam: Clear to Auscultation Bilateral, NORMAL BREATHING PATTERN. absent: Chest Wall Tenderness, Rales, Rhonchi, Wheezes - Cardiovascular Exam Cardiovascular Exam: REGULAR RHYTHM, RRR. absent: Gallop, JVD, Rubs - GI/Abdominal Exam GI & Abdominal Exam: Normal Bowel Sounds, Soft. absent: Distended, Firm, Tenderness - Rectal Exam Additional comments: Perirectal abscess noted on right perirectal area 2x3cm dimension. tender to palpation. Moderate erythema noted surrounding abscess. fluctuant. - Extremities Exam Extremities exam: Negative for: calf tenderness, joint swelling, tenderness - Back Exam Back exam: NORMAL INSPECTION. absent: CVA tenderness (L), CVA tenderness (R) - Neurological Exam Neurological exam: Alert, Altered, CN II-XII Intact, Oriented x3 - Psychiatric Exam Psychiatric exam: Normal Affect, Normal Mood - Skin Skin Exam: Erythema, Intact, Warm Additional comments: erythema noted around perirectal abscess. Results - Vital Signs Recent Vital Signs: Last Vital Signs Temp 98.3 F 03/26/18 11:11 Pulse 102 H 03/26/18 11:11 Resp 20 03/26/18 11:11 BP 103/74 03/26/18 11:11 Pulse Ox 98 03/26/18 16:04 - Labs Result Diagrams: 03/26/18 12:32 03/26/18 12:32 Labs: Laboratory Results - last 24 hr 03/26/18 03/26/18 03/26/18 12:32 12:32 13:37 WBC 11.9 H D RBC 4.81 Hgb 14.9 Hct 42.9 MCV 89.0 MCH 30.9 MCHC 34.7 RDW 13.2 Plt Count 226 MPV 9.8 Neut % (Auto) 72.6 Lymph % (Auto) 14.4 L [place] % (Auto) 11.1 H Eos % (Auto) 0.8 Baso % (Auto) 1.1 Neut # (Auto) 8.7 H Lymph # (Auto) 1.7 [place] # (Auto) 1.3 H Eos # (Auto) 0.1 Baso # (Auto) 0.1 Sodium 143 Potassium 4.0 Chloride 105 Carbon Dioxide 25 Anion Gap 16 BUN 16 Creatinine 1.2 Est GFR ( Amer) > 60 Est GFR (Non-Af Amer) > 60 Random Glucose 97 Calcium 9.0 Total Bilirubin 0.9 AST 21 ALT 15 L D Alkaline Phosphatase 73 Total Protein 7.4 Albumin 4.2 Globulin 3.2 Albumin/Globulin Ratio 1.3 Urine Color Yellow Urine Clarity Clear Urine pH 5.0 Ur Specific [place] 1.012 Urine Protein Negative Urine Glucose (UA) Normal Urine Ketones Negative Urine Blood Negative Urine Nitrate Negative Urine Bilirubin Negative Urine Urobilinogen Normal Ur Leukocyte Esterase Neg Urine WBC (Auto) 2 Urine RBC (Auto) < 1 Ur Squamous Epith Cells < 1 Urine Bacteria Rare Assessment & Plan - Assessment and Plan (Free Text) Assessment: Perirectal abscess Plan: NPO IVF ABX OR for I&D today \ESTEBAN Serna - Date & Time Date: 03/26/18 Time: 16:28
[2018-03-26] MEDS ORDERED: HYDROmorphone 1 mg/ml ISec IVP PRN (17:14)
[2018-03-26] MEDS: Sodium Chloride 0.9% 1,000 ML IV SCH (17:15)
[2018-03-26] MEDS ORDERED: Midazolam 2 MG/2 ML VIAL ONE (17:34)
[2018-03-26] MEDS ORDERED: Propofol 10 mg/ml Inj (20 ML) ONE (17:35)
[2018-03-26] MEDS ORDERED: HYDROmorphone 0.5 mg/0.5 ml ISec IVP PRN (18:00)
[2018-03-26] MEDS ORDERED: Vancomycin 500mg/D5W 100 ml 500 MG/100 ML BAG IVPB SCH ×2 (18:00→22:00)
--- NOTE | 2018-03-26 18:09 | PCM.SURG1 ---
Surgeon's Initial Post Op Note - Surgeon's Notes Surgeon: Dr. Serna Operating Table Assembler: Sudarshan Rasheed PGY2 Type of Anesthesia: General LMA Pre-Operative Diagnosis: perirectal abscess R Operative Findings: R perirectal abscess Post-Operative Diagnosis: Same Operation Performed: Incision and drainage of perirectal abscess Specimen/Specimens Removed: abscess 20cc Estimated Blood Loss: EBL {In ML}: 10 Blood Products Given: N/A Drains Used: No Drains Post-Op Condition: Good Date of Surgery/Procedure: 03/26/18 Time of Surgery/Procedure: 18:09
[2018-03-26] MEDS ORDERED: Oxycodone/Acetaminophen 5/325 mg Tab PO PRN (18:10)
[2018-03-26 19:45] VITALS: RESP 20
[2018-03-26] MEDS: Piperacill/Tazo 3.375gm in Dex 3.375 GM/50 ML BAG IVPB SCH (22:20)
[2018-03-27] MEDS: Sodium Chloride 0.9% 1,000 ML IV SCH ×2 (00:06→05:38)
[2018-03-27 06:47] LABS: BASO # 0.1 K/uL (0.0-0.2); BASO % 0.7 % (0.0-2.0); EOS # 0.2 K/uL (0.0-0.7); EOS % 1.7 % (0.0-4.0); HEMOGLOBIN 13.3 g/dL (12.0-18.0); LYMPH # 1.8 K/uL (1.0-4.3); LYMPH % 16.1 % (20.0-40.0); MEAN CELL VOLUME 89.8 fL (80.0-94.0); MEAN CORPUSCULAR HGB CONC 34.6 g/dL (33.0-37.0); MEAN PLATELET VOLUME 9.6 fL (7.2-11.7); MONO # 1.2 K/uL (0.0-0.8); MONO % 10.8 % (0.0-10.0); NEUT # 7.7 K/uL (1.8-7.0); NEUT % 70.7 % (50.0-75.0); RBC 4.29 Mil/uL (4.40-5.90); RED CELL DISTRIBUTION WIDTH 13.1 % (11.5-14.5); WHITE BLOOD COUNT 10.9 K/uL (4.8-10.8)
[2018-03-27] MEDS: Piperacill/Tazo 3.375gm in Dex 3.375 GM/50 ML BAG IVPB SCH (07:01)
--- NOTE | 2018-03-27 08:24 | CP.PCM.DIS ---
Provider - Provider Date of Admission: 03/26/18 13:40 Attending physician: Norbert Serna MD Time Spent in preparation of Discharge (in minutes): 40 Hospital Course - Lab Results Lab Results: Micro Results 03/26/18 17:50 Abscess - Perirectal Gram Stain - Final Most Recent Lab Values WBC 10.9 K/uL (4.8-10.8) H 03/27/18 06:35 RBC 4.29 Mil/uL (4.40-5.90) L 03/27/18 06:35 Hgb 13.3 g/dL (12.0-18.0) 03/27/18 06:35 Hct 38.5 % (35.0-51.0) 03/27/18 06:35 MCV 89.8 fL (80.0-94.0) 03/27/18 06:35 MCH 31.0 pg (27.0-31.0) 03/27/18 06:35 MCHC 34.6 g/dL (33.0-37.0) 03/27/18 06:35 RDW 13.1 % (11.5-14.5) 03/27/18 06:35 Plt Count 201 K/uL (130-400) 03/27/18 06:35 MPV 9.6 fL (7.2-11.7) 03/27/18 06:35 Neut % (Auto) 70.7 % (50.0-75.0) 03/27/18 06:35 Lymph % (Auto) 16.1 % (20.0-40.0) L 03/27/18 06:35 [place] % (Auto) 10.8 % (0.0-10.0) H 03/27/18 06:35 Eos % (Auto) 1.7 % (0.0-4.0) 03/27/18 06:35 Baso % (Auto) 0.7 % (0.0-2.0) 03/27/18 06:35 Neut # (Auto) 7.7 K/uL (1.8-7.0) H 03/27/18 06:35 Lymph # (Auto) 1.8 K/uL (1.0-4.3) 03/27/18 06:35 [place] # (Auto) 1.2 K/uL (0.0-0.8) H 03/27/18 06:35 Eos # (Auto) 0.2 K/uL (0.0-0.7) 03/27/18 06:35 Baso # (Auto) 0.1 K/uL (0.0-0.2) 03/27/18 06:35 Sodium 143 mmol/L (132-148) 03/26/18 12:32 Potassium 4.0 mmol/L (3.6-5.2) 03/26/18 12:32 Chloride 105 mmol/L (98-107) 03/26/18 12:32 Carbon Dioxide 25 mmol/L (22-30) 03/26/18 12:32 Anion Gap 16 (10-20) 03/26/18 12:32 BUN 16 mg/dL (9-20) 03/26/18 12:32 Creatinine 1.2 mg/dL (0.8-1.5) 03/26/18 12:32 Est GFR ( Amer) > 60 03/26/18 12:32 Est GFR (Non-Af Amer) > 60 03/26/18 12:32 Random Glucose 97 mg/dL (75-110) 03/26/18 12:32 Calcium 9.0 mg/dl (8.6-10.4) 03/26/18 12:32 Total Bilirubin 0.9 mg/dL (0.2-1.3) 03/26/18 12:32 AST 21 U/L (17-59) 03/26/18 12:32 ALT 15 U/L (21-72) L D 03/26/18 12:32 Alkaline Phosphatase 73 U/L (38-126) 03/26/18 12:32 Total Protein 7.4 g/dL (6.3-8.3) 03/26/18 12:32 Albumin 4.2 g/dL (3.5-5.0) 03/26/18 12:32 Globulin 3.2 gm/dL (2.2-3.9) 03/26/18 12:32 Albumin/Globulin Ratio 1.3 (1.0-2.1) 03/26/18 12:32 Urine Color Yellow (YELLOW) 03/26/18 13:37 Urine Clarity Clear (Clear) 03/26/18 13:37 Urine pH 5.0 (5.0-8.0) 03/26/18 13:37 Ur Specific [place] 1.012 (1.003-1.030) 03/26/18 13:37 Urine Protein Negative mg/dL (NEGATIVE) 03/26/18 13:37 Urine Glucose (UA) Normal mg/dL (Normal) 03/26/18 13:37 Urine Ketones Negative mg/dL (NEGATIVE) 03/26/18 13:37 Urine Blood Negative (NEGATIVE) 03/26/18 13:37 Urine Nitrate Negative (NEGATIVE) 03/26/18 13:37 Urine Bilirubin Negative (NEGATIVE) 03/26/18 13:37 Urine Urobilinogen Normal mg/dL (0.2-1.0) 03/26/18 13:37 Ur Leukocyte Esterase Neg [place]/uL (Negative) 03/26/18 13:37 Urine WBC (Auto) 2 /hpf (0-5) 03/26/18 13:37 Urine RBC (Auto) < 1 /hpf (0-3) 03/26/18 13:37 Ur Squamous Epith Cells < 1 /hpf (0-5) 03/26/18 13:37 Urine Bacteria Rare (<OCC) 03/26/18 13:37 - Hospital Course Hospital Course: 52M presented with right sided perianal abscess on 03/26 which was drained in OR immediately. Patient tolerated operation well. This AM he states pain is much relieved and he feels much better. States he wants to go home. Episode of fever over night which has now resolve. will continue to monitor vitals and DC home. Discharge Exam - Head Exam Head Exam: ATRAUMATIC, NORMAL INSPECTION, NORMOCEPHALIC - Respiratory Exam Respiratory Exam: Clear to PA & Lateral, NORMAL BREATHING PATTERN - Cardiovascular Exam Cardiovascular Exam: REGULAR RHYTHM, +S1, +S2 - GI/Abdominal Exam GI & Abdominal Exam: Soft. absent: Distended, Firm, Guarding, Rebound, Rigid, Tenderness - Rectal Exam Additional comments: right side side of InD opened. Packing in place, Draining purulent fluid mix with serosanguinous fluid. - Neurological Exam Neurological exam: Alert, Oriented x3 Discharge Plan - Follow Up Plan Condition: STABLE Disposition: HOME/ ROUTINE
[2018-03-27] MEDS ORDERED: Pneumococcal 23-Valent Vaccine IM ONE (10:00)
[2018-03-27 11:38] VITALS: BP 113/72; PULSE 74; TEMP 98.1; O2SAT 94
--- NOTE | 2018-03-30 01:04 | OP ---
PROCEDURE DATE: 03/26/2018 SURGEON: Norbert Serna MD FISHING GAME WARDEN: Dr. Rasheed. ANESTHESIA: General LMA. PREOPERATIVE DIAGNOSIS: Right-sided perirectal abscess. POSTOPERATIVE DIAGNOSIS: Right-sided perirectal abscess. PROCEDURE: Incision and drainage of perirectal abscess. DESCRIPTION OF OPERATION: The patient was anesthetized and placed in a lithotomy position. The perineum and rectal area were prepped and draped in the usual sterile manner. The patient was noted to have an area of fluctuant swelling close to the anal verge at approximately 10 o'clock on the right anterior aspect, and incision was made into this area with drainage of a large quantity of purulent fluid. Culture was taken. Rectal examination was performed, and no additional supralevator extension was identified and no other areas of fluctuance could be identified. The cavity was cleansed with multiple passes of dry gauze and irrigated, and no additional loculations were identified. Iodoform packing was then placed followed by a dry sterile dressing. The patient tolerated the procedure well and transferred to recovery room in stable condition. Estimated blood loss for the procedure was 10 mL. Norbert Serna MD
== END 2018-03-27 13:13 | disposition home or self-care (01) | DRG 153 ==
LOC: C.ER 10:54 → C.9E 13:40 → C.3T 18:30
PROVIDERS: ADMIT Specialist; ATTEND Specialist
PROC: 0D9P0ZX Drainage of Rectum, Open Approach, Diagnostic (ICD-10-PCS; principal; 2018-03-26 12:15)
DX: K61.1 Rectal abscess (principal); Z87.891 Personal history of nicotine dependence; M17.12 Unilateral primary osteoarthritis, left knee; M16.12 Unilateral primary osteoarthritis, left hip; K64.4 Residual hemorrhoidal skin tags; K61.2 Anorectal abscess

== ENCOUNTER 2018-06-17 12:49 | Emergency (ER) | payer MEDICAID ==
[2018-06-17 12:50] VITALS: BMI 22.5
[2018-06-17 12:57] VITALS: BP 130/90; PULSE 80; RESP 18; TEMP 98.4; O2SAT 100
--- NOTE | 2018-06-17 13:29 | C.PDOC ---
History Of Present Illness 52 y/o male presents to ED with c/o intermittent draining from abscess on cherelle- rectal area. Patient states he was seen by Dr. Serna in 03/2018 and had abscess drained, packing fell off and has not followed up. Patient is concerned because of intermittent draining from area and denies fever, chills, bowel/bladder incontinence or any other complaints at this time. Time Seen by Provider: 06/17/18 13:07 Chief Complaint (Nursing): Abnormal Skin Integrity History Per: Patient History/Exam Limitations: no limitations Onset/Duration Of Symptoms: Days, Intermittent Episodes Current Symptoms Are (Timing): Still Present Past Medical History Reviewed: Historical Data, Nursing Documentation, Vital Signs Vital Signs: Last Vital Signs Temp 98.4 F 06/17/18 12:53 Pulse 80 06/17/18 12:53 Resp 18 06/17/18 12:53 BP 130/90 06/17/18 12:53 Pulse Ox 100 06/17/18 13:29 - Medical History PMH: Arthritis, Back Problems (sciatica) Surgical History: Appendectomy, Tonsillectomy - [facility] Procedures DRAINAGE OF RECTUM, OPEN APPROACH, DIAGNOSTIC (03/26/18) ENDOSC POLYPECTOMY OF LG INTEST (06/08/15) Family History: States: No Known Family Hx - Social History Hx Tobacco Use: Yes Hx Alcohol Use: No Hx Substance Use: No - Immunization History Hx Tetanus Toxoid Vaccination: Yes (less than 5 yrs ago) Hx Influenza Vaccination: Yes Hx Pneumococcal Vaccination: Yes Review Of Systems Constitutional: Negative for: Fever, Chills Gastrointestinal: Negative for: Nausea, Vomiting Genitourinary: Negative for: Incontinence Skin: Positive for: Other (abscess to cherelle rectal area). Negative for: Rash Physical Exam - Physical Exam Appears: Non-toxic, No Acute Distress Skin: Warm, Dry, No Rash Head: Atraumatic, Normacephalic Eye(s): bilateral: Normal Inspection Oral Mucosa: Moist Cardiovascular: Rhythm Regular Respiratory: Normal Breath Sounds, No Rales, No Rhonchi, No Wheezing Gastrointestinal/Abdominal: Soft, No Tenderness, No Guarding, No Rebound Rectal: Other (small area of induration to right cherelle-rectal area at 5oclock . No active draining or fluctuance noted) Back: No CVA Tenderness Neurological/Psych: Oriented x3, Normal Speech ED Course And Treatment O2 Sat by Pulse Oximetry: 100 (RA) Pulse Ox Interpretation: Normal Disposition Counseled Patient/Family Regarding: Need For Followup, Rx Given - Disposition Referrals: Norbert Serna MD [Staff Provider] - Disposition: HOME/ ROUTINE Disposition Time: 13:27 Condition: STABLE Prescriptions: Amoxicillin/Clavulanate [Augmentin 875 MG-125 MG] 1 tab PO BID #14 tab Instructions: Anal Abscess and Fistula Forms: [facility] (Maori) - Clinical Impression Clinical Impression: Cherelle-rectal abscess - Scribe Statement The provider has reviewed the documentation as recorded by the Samuelibrosario Paul All medical record entries made by the Marycruz were at my direction and personally dictated by me. I have reviewed the chart and agree that the record accurately reflects my personal performance of the history, physical exam, medical decision making, and the department course for this patient. I have also personally directed, reviewed, and agree with the discharge instructions and disposition.
== END 2018-06-17 13:35 | disposition home or self-care (01) ==
LOC: C.ER 12:49
DX: K61.1 Rectal abscess (principal)

== ENCOUNTER 2019-02-01 14:01 | Emergency (ER) | payer MEDICAID ==
[2019-02-01 14:55] VITALS: BMI 26.2
[2019-02-01 15:01] VITALS: BP 111/75; PULSE 78; TEMP 98.6; O2SAT 96
--- NOTE | 2019-02-01 15:45 | C.PDOC ---
History Of Present Illness RECUR PERIRECTAL PAIN, DRAINAGE SINCE 2018. SP I&D 03/[address] SERNA BUT PT NONCOMPLIANT W FU, STATES REMOVED PACKING HIMSELF. EVAL 05/2018 IN ER FOR SAME, GIVEN AUGMENTIN BUT NONCOMPLIANT DUE TO GI SIDE EFFECT. PS HAS HAD MULT EPISODES OF "BUBBLE GETTING BIGGER" IN PERIRECTAL AREA W DRAINAGE +REPEAT DRAINAGE LAST NIGHT. NO FEVER, OTHER ASSOC SX EXAM NONTOXIC RECTAL +ABSCESS L PERIRECTAL W LOCAL TEND, NO DRAINAGE ABD NEG REMAINDER NEG Time Seen by Provider: 02/01/19 15:23 Chief Complaint (Nursing): GI Problem History Per: Patient History/Exam Limitations: no limitations Onset/Duration Of Symptoms: Days Current Symptoms Are (Timing): Still Present Severity: Moderate Past Medical History Reviewed: Historical Data, Nursing Documentation, Vital Signs Vital Signs: Last Vital Signs Temp 98.6 F 02/01/19 14:57 Pulse 78 02/01/19 14:57 Resp 18 02/01/19 14:57 BP 111/75 02/01/19 14:57 Pulse Ox 96 02/01/19 14:57 - Medical History PMH: Arthritis, Back Problems (sciatica) Surgical History: Appendectomy, Tonsillectomy - [facility] Procedures DRAINAGE OF RECTUM, OPEN APPROACH, DIAGNOSTIC (03/26/18) ENDOSC POLYPECTOMY OF LG INTEST (06/08/15) Family History: States: No Known Family Hx - Social History Hx Tobacco Use: Yes Hx Alcohol Use: No Hx Substance Use: No - Immunization History Hx Tetanus Toxoid Vaccination: Yes (less than 5 yrs ago) Hx Influenza Vaccination: Yes (2017) Hx Pneumococcal Vaccination: Yes Review Of Systems Except As Marked, All Systems Reviewed And Found Negative. Constitutional: Negative for: Fever, Chills Gastrointestinal: Positive for: Other (perirectal pain). Negative for: Nausea, Vomiting Physical Exam - Physical Exam Appears: Non-toxic Skin: Normal Color, Warm, Dry Head: Atraumatic, Normacephalic Eye(s): bilateral: Normal Inspection Neck: Supple Chest: Symmetrical Cardiovascular: Rhythm Regular Respiratory: Normal Breath Sounds, No Rales, No Rhonchi Gastrointestinal/Abdominal: Normal Exam, Soft, No Tenderness, No Guarding, No Rebound Rectal: Other (abscess with left perirectal with local tenderness,no drainage) Neurological/Psych: Oriented x3, Normal Speech ED Course And Treatment - Laboratory Results Result Diagrams: 02/01/19 16:34 02/01/19 16:34 O2 Sat by Pulse Oximetry: 96 (RA) Pulse Ox Interpretation: Normal Progress - Re-Evaluation Re-evaluation Note: 02/01/19 15:45 D/W SURG RESIDENT WILL EVAL IN ER 02/01/19 16:56 PER SURG RESIDENT D/W DR SERNA: ADVISES OUTPT FU. NO CT NEEDED IN ER, CLEARED FOR DC - Data Reviewed Data Reviewed: Lab, Diagnostic imaging, Old records Medical Decision Making Medical Decision Making: Plan: --Labs --CT-Pelvis Disposition Counseled Patient/Family Regarding: Diagnosis, Need For Followup - Disposition Referrals: Norbert Serna MD [Staff Provider] - [facility] [Outside] [facility] [Outside] Disposition: HOME/ ROUTINE Disposition Time: 16:56 Condition: GOOD Instructions: Anal Abscess and Fistula (DC) Forms: [facility] (Latvian), Work Excuse - Clinical Impression Clinical Impression: Cherelle-rectal abscess - Scribe Statement The provider has reviewed the documentation as recorded by the Scribe Duarte Moran Provider Attestation: All medical record entries made by the Scribe were at my direction and personally dictated by me. I have reviewed the chart and agree that the record accurately reflects my personal performance of the history, physical exam, medical decision making, and the department course for this patient. I have also personally directed, reviewed, and agree with the discharge instructions and disposition.
--- NOTE | 2019-02-01 16:28 | CP.PCM.CON ---
History of Present Illness - History of Present Illness History of Present Illness: General Surgery consult note for Dr. Serna Patient is a 53 yr old male with PMH narcolepsy, arthritis, vertigo and perirectal abscess who presents to [facility] ED with complaint of draining fluid from the area of his perirectal abscess which was drained March 2018. Pt was seen on 2 other occasions for siilar complaints. he was given Augmentin but did not complete the course d/t n/v. Patient denies pain at the site and descr ibes the drainage as intermittent serosanguinous. He denies any purulent output, pain with defecation, blood in stool, dysuria, pneumouria, difficulty urinating. 12 point ROS otherwise negative. PMH: narcolepsy, arthritis, perirectal abscess, vertigo PSH: Lasic eye surgery, appendectomy Social: denies ETOH and drugs, former smoker quit 2 yrs ago Meds: meclizine, ibuprofen Review of Systems - Review of Systems All systems: reviewed and no additional remarkable complaints except (as per HPI) Past Patient History - Infectious Disease Hx of Infectious Diseases: None (as per HPI) - Past Medical History & Family History Past Medical History?: Yes - Past Social History Smoking Status: Former Smoker - CARDIAC Hx Cardiac Disorders: No - NEUROLOGICAL Hx Neurological Disorder: Yes Hx Vertigo: Yes Other/Comment: Neuropathy - MUSCULOSKELETAL/RHEUMATOLOGICAL Hx Arthritis: Yes - GASTROINTESTINAL Hx Gastrointestinal Disorders: Yes Other/Comment: RECTAL CYSTS SURGERY BY DR. SERNA - PSYCHIATRIC Hx Substance Use: No - SURGICAL HISTORY Hx Appendectomy: Yes Hx Tonsillectomy: Yes - ANESTHESIA Hx Anesthesia: Yes Hx Anesthesia Reactions: No Hx Malignant Hyperthermia: No Meds Allergies/Adverse Reactions: Allergies Allergy/AdvReac Type Severity Reaction Status Date / Time amoxicillin [From Augmentin] Allergy Verified 02/01/19 14:56 clavulanic acid Allergy Verified 02/01/19 14:56 [From Augmentin] ibuprofen Allergy Verified 02/01/19 14:55 Physical Exam - Constitutional Appears: Well, Non-toxic, No Acute Distress - Head Exam Head Exam: ATRAUMATIC, NORMOCEPHALIC - Eye Exam Eye Exam: EOMI - ENT Exam ENT Exam: Mucous Membranes Moist - Respiratory Exam Respiratory Exam: NORMAL BREATHING PATTERN - Cardiovascular Exam Cardiovascular Exam: REGULAR RHYTHM - GI/Abdominal Exam GI & Abdominal Exam: Soft. absent: Guarding, Tenderness - Rectal Exam Additional comments: unable to examine patient as he was in a rendon chair and an exam room was not available at this time - Extremities Exam Extremities exam: Negative for: calf tenderness, pedal edema - Neurological Exam Neurological exam: Alert, Oriented x3 - Psychiatric Exam Psychiatric exam: Normal Affect, Normal Mood - Skin Skin Exam: Dry, Intact, Normal Color, Warm Results - Vital Signs Recent Vital Signs: Last Vital Signs Temp 98.6 F 02/01/19 14:57 Pulse 78 02/01/19 14:57 Resp 18 02/01/19 14:57 BP 111/75 02/01/19 14:57 Pulse Ox 96 02/01/19 16:12 Assessment & Plan - Assessment and Plan (Free Text) Assessment: 53 yr old male with 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 Plan: - pt likely has fistula - may follow up in office or free clinic for evaluation for possible fistulectomy - f/u CT scan results - will discuss with Dr. Kareem Rodriguez, PGY 1 - Date & Time Date: 02/01/19 Time: 16:10
[2019-02-01 16:45] LABS: BASO # 0.1 K/uL (0.0-0.2); BASO % 1.3 % (0.0-2.0); EOS # 0.3 K/uL (0.0-0.7); EOS % 4.3 % (0.0-4.0); LYMPH # 2.1 K/uL (1.0-4.3); LYMPH % 30.4 % (20.0-40.0); MEAN CELL VOLUME 88.4 fL (80.0-94.0); MEAN CORPUSCULAR HEMOGLOBIN 30.9 pg (27.0-31.0); MEAN CORPUSCULAR HGB CONC 34.9 g/dL (33.0-37.0); MEAN PLATELET VOLUME 9.9 fL (7.2-11.7); MONO # 0.6 K/uL (0.0-0.8); MONO % 8.3 % (0.0-10.0); NEUT # 3.8 K/uL (1.8-7.0); NEUT % 55.7 % (50.0-75.0); NRBC % 0.1 % (0.0-2.0); RBC 5.22 Mil/uL (4.40-5.90); RED CELL DISTRIBUTION WIDTH 13.5 % (11.5-14.5); WHITE BLOOD COUNT 6.8 K/uL (4.8-10.8)
[2019-02-01 16:46] LABS: HEMOGLOBIN 16.1 g/dL (12.0-18.0)
[2019-02-01 16:53] LABS: BLOOD UREA NITROGEN 18 mg/dL (9-20); CALCIUM 9.4 mg/dl (8.6-10.4); GFR NON-AFRICAN AMERICAN > 60
[2019-02-01 17:30] VITALS: RESP 20
== END 2019-02-01 17:28 | disposition home or self-care (01) ==
LOC: C.ER 14:01
DX: K61.1 Rectal abscess (principal); G62.9 Polyneuropathy, unspecified; M19.90 Unspecified osteoarthritis, unspecified site

== ENCOUNTER 2019-03-17 08:58 | Day surgery (SDC) | payer MEDICAID ==
[2019-03-17] MEDS ORDERED: Propofol 10 mg/ml Inj (20 ML) ONE (10:45)
[2019-03-17] MEDS ORDERED: Lactated Ringer's 1,000 ML IV ONE (10:55)
[2019-03-17 14:16] VITALS: BP 110/79; PULSE 62; RESP 15; O2SAT 99
[2019-03-17 14:20] VITALS: TEMP 97.6
== END 2019-03-17 12:30 | disposition home or self-care (01) ==
LOC: C.ENDO 08:58
PROVIDERS: ATTEND Internal Medicine Gastroenterology
DX: K29.80 Duodenitis without bleeding (principal); K29.50 Unspecified chronic gastritis without bleeding; R13.10 Dysphagia, unspecified
CPT/HCPCS: 43239; 88305; 88312; 88342; J2001; J2704; J7120